=== PATIENT | female | born 1985 | race Asian ===

== ENCOUNTER 2018-12-14 05:15 | Inpatient (IN) | payer OTHER ==
[~2018-12-14] VITALS: Ht 162 cm; Wt 64.9 kg
[~2018-12-14 05:15] MED LIST: CEFAZOLIN 2 GM IVPB PREMIX 50 ML IV ONE
[2018-12-14] MEDS ORDERED: LR 1,000 ML IV SCH ×3 (05:28→10:49)
[2018-12-14] MEDS ORDERED: CEFAZOLIN 2 GM IVPB PREMIX 50 ML IV ONE (05:30)
[2018-12-14 06:00] LABS: BASOPHILS % (AUTO) 0.4 % (0.0-2.0); EOSINOPHILS % (AUTO) 0.7 % (0.0-4.0); HEMATOCRIT 33.7 % (36-48); HEMOGLOBIN 12.1 g/dL (12.0-16.0); LYMPHOCYTES # (AUTO) 1.3 K/uL (1.0-5.5); MEAN CORPUSCULAR HEMOGLOBIN 33 pg (27-31); MEAN CORPUSCULAR HGB CONC 36 % (32-36); MEAN CORPUSCULAR VOLUME 91 fL (79.0-98.0); MONOCYTES # (AUTO) 0.3 K/uL (0.0-1.0); MONOCYTES % (AUTO) 6.9 % (1.7-9.3); NEUTROPHILS # (AUTO) 3.1 K/uL (1.8-7.7); PLATELET COUNT (AUTO) 170 K/uL (130-430); RED BLOOD CELL COUNT(AUTO) 3.72 MIL/uL (4.2-6.2); RED CELL DISTRIBUTION WIDTH 12.6 % (9.0-15.0); WHITE BLOOD COUNT (AUTO) 4.8 K/uL (4.8-10.8)
[2018-12-14 06:15] VITALS: BP_SYST 95
[2018-12-14] MEDS ORDERED: NALOXONE HCL 1 MG in NACL 0.9% 1,000 ML IV PRN ×4 (07:35)
[2018-12-14] MEDS ORDERED: NS IRRIG SOLN 1000 ML IR ONE (07:40)
[2018-12-14] MEDS ORDERED: TRANEXAMIC ACID 1,000 MG/10 ML VIAL IV ONE (07:40)
[2018-12-14] MEDS ORDERED: OXYTOCIN 10 UNIT/ML VIAL IM ONE (07:40)
[2018-12-14] MEDS ORDERED: BUPIVACAINE /DEX PF 0.75% SPINAL 2 ML AMP INJ ONE (07:40)
[2018-12-14] MEDS ORDERED: LR 1,000 ML IV.SOLN IV ONE (07:40)
[2018-12-14] MEDS ORDERED: ePHEDrine sulfate 50 MG/ML VIAL IM ONE (07:40)
[2018-12-14] MEDS ORDERED: ONDANSETRON HCL 4 MG/2 ML VIAL IVP ONE (07:40)
[2018-12-14] MEDS ORDERED: OXYTOCIN/0.9 % SODIUM CHLORIDE 20 UNITS/1,000 ML BAG IV ONE (07:40)
[2018-12-14] MEDS ORDERED: KETOROLAC TROMETHAMINE 60 MG/2 ML VIAL IM PRN (07:45)
[2018-12-14] MEDS ORDERED: HYDROmorphone 2 MG/ML VIAL IVP PRN ×2 (07:45)
[2018-12-14] MEDS ORDERED: DIPHENHYDRAMINE HCL 50 MG CAPSULE PO PRN (07:45)
[2018-12-14] MEDS ORDERED: NALOXONE HCL 0.4 MG/ML AMP (NARCAN) IVP PRN ×3 (07:45)
[2018-12-14] MEDS ORDERED: HYDROmorphone 1 MG INJ. 1 MG/ML AMPUL IVP PRN (07:45)
[2018-12-14] MEDS ORDERED: DIPHENHYDRAMINE INJ 50 MG/ML VIAL IVP PRN (07:45)
[2018-12-14] MEDS ORDERED: MEPERIDINE HCL/PF 25 MG/ML DISP.SYRIN IVP PRN ×2 (07:45)
[2018-12-14 08:27] LABS: BILIRUBIN,URINE NEGATIVE (NEGATIVE); CLARITY/URINE HAZY (CLEAR); COLOR,URINE YELLOW (YELLOW); GLUCOSE,URINE NEGATIVE (NEGATIVE); KETONES,URINE NEGATIVE (NEGATIVE); LEUKOCYTE ESTERASE ,URINE 3+ (NEGATIVE); NITRITE, URINE NEGATIVE (NEGATIVE); PROTEIN URINE NEGATIVE (NEGATIVE); UROBILINOGEN,URINE 0.2 (0.2-1.0)
[2018-12-14 08:28] LABS: BLOOD, URINE TRACE (NEGATIVE)
[2018-12-14 08:39] LABS: BACTERIA,URINE MODERATE /HPF (None Seen); MUCUS,URINE 1+ /LPF (None Seen); RBC,URINE 0-3 /HPF (0-3); WBC,URINE 20-50 /HPF (0-3)
[2018-12-14 08:43] VITALS: BP_SYST 122
[2018-12-14] MEDS ORDERED: OXYTOCIN/0.9 % SODIUM CHLORIDE 1,000 ML IV ONE (10:49)
[2018-12-14] MEDS ORDERED: BISACODYL 10 MG/SUPPOSITORY RC PRN (11:00)
[2018-12-14] MEDS ORDERED: SENNOSIDES/DOCUSATE SODIUM 1 TAB TABLET(SENOKOT-S) PO PRN (11:00)
[2018-12-14] MEDS ORDERED: ANUSOL 1 EA SUPP.RECT (PREPARATION H) RC PRN (11:00)
[2018-12-14] MEDS ORDERED: LANOLIN 7 GM OINT. TP PRN (11:00)
[2018-12-14] MEDS: CEFAZOLIN 1 GM IVPB PREMIX 50 ML IV SCH ×2 (13:40→19:49)
[2018-12-14] MEDS: ONDANSETRON HCL 4 MG/2 ML VIAL IVP PRN ×2 (13:40→18:25)
[2018-12-14] MEDS ORDERED: CEFAZOLIN 1 GM IVPB PREMIX 50 ML IV SCH (14:00)
[2018-12-14] MEDS: KETOROLAC TROMETHAMINE 30 MG VIAL IVP SCH ×2 (18:22→23:49)
[2018-12-14] MEDS ORDERED: METOCLOPRAMIDE HCL 10 MG/2 ML VIAL IVP ONE (19:45)
[2018-12-14] MEDS: SIMETHICONE 80 MG TAB.CHEW PO PRN ×2 (19:49→23:48)
[2018-12-14] MEDS ORDERED: METOCLOPRAMIDE HCL 10 MG/2 ML VIAL ONE (19:53)
[2018-12-15] MEDS: CEFAZOLIN 1 GM IVPB PREMIX 50 ML IV SCH (02:14)
[2018-12-15] MEDS ORDERED: OXYCODONE/ACETAMINOPHEN 5-325 TABLET PO PRN (06:15)
[2018-12-15] MEDS: KETOROLAC TROMETHAMINE 30 MG VIAL IVP SCH ×2 (06:19→11:53)
[2018-12-15] MEDS: SIMETHICONE 80 MG TAB.CHEW PO PRN ×4 (06:19→20:15)
[2018-12-15 07:06] LABS: BASOPHILS % (AUTO) 0.4 % (0.0-2.0); EOSINOPHILS % (AUTO) 0.3 % (0.0-4.0); HEMATOCRIT 36.7 % (36-48); HEMOGLOBIN 12.8 g/dL (12.0-16.0); LYMPHOCYTES # (AUTO) 1.3 K/uL (1.0-5.5); LYMPHOCYTES % (AUTO) 16.9 % (20.5-51.5); MEAN CORPUSCULAR HEMOGLOBIN 32 pg (27-31); MEAN CORPUSCULAR HGB CONC 35 % (32-36); MEAN CORPUSCULAR VOLUME 92 fL (79.0-98.0); MONOCYTES # (AUTO) 0.4 K/uL (0.0-1.0); MONOCYTES % (AUTO) 5.4 % (1.7-9.3); PLATELET COUNT (AUTO) 191 K/uL (130-430); RED BLOOD CELL COUNT(AUTO) 3.97 MIL/uL (4.2-6.2); RED CELL DISTRIBUTION WIDTH 12.7 % (9.0-15.0); WHITE BLOOD COUNT (AUTO) 7.8 K/uL (4.8-10.8)
[2018-12-15] MEDS: OXYCODONE/ACETAMINOPHEN 5-325 TABLET PO PRN ×2 (09:14→20:14)
[2018-12-15] MEDS: DOCUSATE SODIUM 100 MG CAPSULE PO PRN ×2 (09:14→20:15)
[2018-12-15] MEDS: IBUPROFEN 600 MG TABLET PO SCH (18:14)
[2018-12-16] MEDS: IBUPROFEN 600 MG TABLET PO SCH ×2 (00:08→05:55)
[2018-12-16] MEDS: OXYCODONE/ACETAMINOPHEN 5-325 TABLET PO PRN (07:55)
== END 2018-12-16 11:35 | disposition home or self-care (01) | DRG 788 ==
LOC: SPU 05:15
PROVIDERS: ADMIT Obstetrics & Gynecology; ATTEND Obstetrics & Gynecology
PROC: 10D00Z1 Extraction of Products of Conception, Low, Open Approach (ICD-10-PCS; principal; 2018-12-14 07:30)
DX: O34.211 Maternal care for low transverse scar from previous cesarean delivery (principal); Z3A.39 39 weeks gestation of pregnancy; Z37.0 Single live birth
CPT/HCPCS: 36415; 81000-TC; 85025; 86592; 86886; 86900; 86901; 94760; J0690; J1885; J2405; J2590; J2765; J3490; J7120